=== PATIENT | male | born 1995 | race Caucasian/White ===

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

== ENCOUNTER 2018-09-03 11:09 | Emergency (ER) | payer OTHER ==
[~2018-09-03] VITALS: Ht 170.2 cm; Wt 111.1 kg
[~2018-09-03 11:09] MED LIST: HYDR-3165 PO; NAPR-683 PO
[2018-09-03 11:27] VITALS: BP 138/79
--- NOTE | 2018-09-03 12:05 | PHYS DOC ---
Past History Past Medical History: Anxiety, Depression, Hypertension, Other Past Surgical History: Other Smoking: Cigarettes Alcohol Use: None Drug Use: None Adult General Chief Complaint Chief Complaint: LACERATION/AVULSION HPI HPI 22-year-old male presents with laceration of the left thumb. The patient was w alking with a glass tripped and fell. The glass took a chunk out of his finger. He is unsure if it can be sutured. His tetanus is out of date. He denies any other injuries. Review of Systems Review of Systems Constitutional: Denies fever or chills [] Eyes: Denies change in visual acuity, redness, or eye pain [] HENT: Denies nasal congestion or sore throat [] Respiratory: Denies cough or shortness of breath [] Cardiovascular: No additional information not addressed in HPI [] GI: Denies abdominal pain, nausea, vomiting, bloody stools or diarrhea [] : Denies dysuria or hematuria [] Musculoskeletal: Denies back pain or joint pain [] Integument: Laceration[] Neurologic: Denies headache, focal weakness or sensory changes [] Endocrine: Denies polyuria or polydipsia [] All other systems were reviewed and found to be within normal limits, except as documented in this note. Current Medications Current Medications Current Medications Medications (Trade) Dose Ordered Sig/Mireille Start Time Stop Time Status Last Admin Dose Admin Diphtheria/ Tetanus/Acell Pertussis (Boostrix) 0.5 ml ONCE ONCE 09/03/18 12:10 09/03/18 12:11 Lidocaine HCl (Viscous Lidocaine) 15 ml 1X ONCE 09/03/18 12:00 09/03/18 12:01 UNV Allergies Allergies Allergies Coded Allergies Type Severity Reaction Last Updated Verified Sulfa (Sulfonamide Antibiotics) Allergy Unknown 09/03/18 Yes Physical Exam Physical Exam Constitutional: Well developed, well nourished, no acute distress, non-toxic appearance. [] HENT: Normocephalic, atraumatic, bilateral external ears normal, oropharynx moist, no oral exudates, nose normal. [] Eyes: PERRLA, EOMI, conjunctiva normal, no discharge. [] Neck: Normal range of motion, no tenderness, supple, no stridor. [] Cardiovascular:Heart rate regular rhythm, no murmur [] Lungs & Thorax: Bilateral breath sounds clear to auscultation [] Abdomen: Bowel sounds normal, soft, no tenderness, no masses, no pulsatile masses. [] Skin: One centimeter by 4 mm avulsion of skin on the left thumb, volar side. [] Back: No tenderness, no CVA tenderness. [] Extremities: No tenderness, no cyanosis, no clubbing, ROM intact, no edema. [] Neurologic: Alert and oriented X 3, normal motor function, normal sensory function, no focal deficits noted. [] Psychologic: Affect normal, judgement normal, mood normal. [] Current Patient Data Vital Signs Vital Signs Date Time Temp Pulse Resp B/P (MAP) Pulse Ox O2 Delivery O2 Flow Rate FiO2 09/03/18 11:27 98.2 106 20 97 Room Air EKG EKG [] Radiology/Procedures Radiology/Procedures [] Course & Med Decision Making Course & Med Decision Making Pertinent Labs and Imaging studies reviewed. (See chart for details) The patient has a of skin missing. It is not full-thickness. I do not believe sutures would benefit the patient. This can heal by secondary intention. I advised the patient to be careful and keep it clean and dry to avoid infection. He states verbal understanding. We will give him his tetanus shot in the ED. [] Dragon Disclaimer Dragon Disclaimer This electronic medical record was generated, in whole or in part, using a voice recognition dictation system. Departure Departure: Impression: Primary Impression: Avulsion of skin of finger Disposition: 01 HOME, SELF-CARE Condition: STABLE Referrals: CAMERON ADKINS (PCP) Patient Instructions: Finger Avulsion Problem Qualifiers Primary Impression: Avulsion of skin of finger Encounter type: initial encounter Qualified Codes: S61.209A - Unspecified open wound of unspecified finger without damage to nail, initial encounter PANCHO SPENCER DO Sep 03, 2018 12:05
[2018-09-03] MEDS ORDERED: LIDOCAINE 2% VISCOUS 15 ML SOLUTION. ONE (12:06)
[2018-09-03] MEDS ORDERED: DIPHTH,PERTUSS(ACELL),TET TOX 0.5 ML DISP.SYRIN. VAX IM ONE (12:10)
[2018-09-03] MEDS ORDERED: LIDOCAINE 2% VISCOUS 15 ML SOLUTION. SWSW ONE (12:30)
== END 2018-09-03 12:13 | disposition home or self-care (01) ==
LOC: ER 11:09
DX: S61.012A Laceration without foreign body of left thumb without damage to nail, initial encounter (principal); I10 Essential (primary) hypertension; F17.210 Nicotine dependence, cigarettes, uncomplicated; Z88.2 Allergy status to sulfonamides; W01.110A Fall on same level from slipping, tripping and stumbling with subsequent striking against sharp glass, initial encounter; Y93.01 Activity, walking, marching and hiking; Y92.89 Other specified places as the place of occurrence of the external cause; Y99.8 Other external cause status
CPT/HCPCS: 90471; 90715; 99283-25

== ENCOUNTER 2019-09-05 21:46 | Emergency (ER) | payer SELFPAY ==
[~2019-09-05] VITALS: Ht 170.2 cm; Wt 130.5 kg
[2019-09-05 23:06] LABS: BASO # 0.1 x10^3/uL (0.0-0.2); BASO % 1 % (0-3); EOS # 0.1 x10^3/uL (0.0-0.7); EOS % 1 % (0-3); HEMATOCRIT 48.7 % (39.0-53.0); HEMOGLOBIN 16.5 g/dL (13.0-17.5); LYMPH # 2.6 x10^3/uL (1.0-4.8); LYMPH % 26 % (24-48); MEAN CORPUSCULAR HEMOGLOBIN 31 pg (25-35); MEAN CORPUSCULAR HGB CONC 34 g/dL (31-37); MEAN CORPUSCULAR VOLUME 91 fL (79-100); MONO # 0.9 x10^3/uL (0.0-1.1); MONO % 9 % (0-9); NEUT # 6.2 x10^3uL (1.8-7.7); NEUT % 62 % (31-73); PLATELET COUNT 311 x10^3/uL (140-400); RED BLOOD COUNT 5.37 x10^6/uL (4.30-5.70); RED CELL DISTRIBUTION WIDTH 13.5 % (11.5-14.5)
[2019-09-05 23:18] LABS: CALCIUM 9.4 mg/dL (8.5-10.1); CREATININE 1.5 mg/dL (0.7-1.3); GFR 59.1; POTASSIUM 3.3 mmol/L (3.5-5.1)
[2019-09-05 23:19] LABS: BARBITURATES NEG (NEG); BENZODIAZEPINES POS (NEG); CANNABINOIDS POS (NEG); COCAINE NEG (NEG); METHADONE NEG (NEG); OPIATES NEG (NEG); PHENCYCLIDINE NEG (NEG)
[2019-09-05 23:21] LABS: AMPHETAMINE/METHAMPHETAMINE NEG (NEG)
[2019-09-05 23:21] LABS: SALIC < 2.8 mg/dL (2.8-20.0)
[2019-09-05 23:22] LABS: ACETAMIN < 2.0 mcg/mL (10-30); ETHANOL < 10 mg/dL (0-10)
[2019-09-05 23:24] LABS: ALBUMIN 4.8 g/dL (3.4-5.0); ALBUMIN/GLOBULIN RATIO 1.3 (1.0-1.7); MAGNESIUM 2.1 mg/dL (1.8-2.4); TOTAL BILIRUBIN 0.4 mg/dL (0.2-1.0); TOTAL PROTEIN 8.4 g/dL (6.4-8.2)
[2019-09-05 23:53] LABS: BILIRUBIN,URINE NEG (NEG); CLARITY,URINE CLEAR; COLOR,URINE YELLOW; GLUCOSE,URINE NEG (NEG); NITRITE,URINE NEG (NEG)
[2019-09-05 23:54] LABS: BACTERIA,URINE 0 /HPF (0-FEW); RBC,URINE 0 /HPF (0-2); WBC,URINE RARE /HPF (0-4)
[2019-09-06] MEDS ORDERED: POTASSIUM CHLORIDE 20 MEQ TABLET.ER. PO ONE
--- NOTE | 2019-09-06 00:29 | PHYS DOC ---
Past History Past Medical History: Anxiety, Bipolar, Depression, Hypertension, Schizophrenia, Other Additional Past Medical Histor: schizo affective disorder, bipolar type I, ADHD, PTSD, Past Surgical History: Other Additional Past Surgical Histo: ear tubes Smoking: Cigarettes, Less than 1pk/day Alcohol Use: None Drug Use: Marijuana General Adult EDM: Chief Complaint: PSYCH EVALUATION HPI: HPI: 23-year-old male presents with report of suicidal ideation that has been ongoing for the past 2 months. Patient is working through disability process. Reports increased life stressors. Reports today he became more depressed and "broke down" . Reports history of inpatient psychiatric admission at [facility] and the summer 2018. Patient denies plan. Reports use of marijuana. Denies alcohol abuse. Denies fever or chills. Denies trauma. Review of Systems: Review of Systems: Constitutional: Denies fever or chills Eyes: Denies redness or eye pain Respiratory: Denies cough or shortness of breath Cardiovascular: Denies chest pain or palpitations GI: Denies abdominal pain, nausea, or vomiting Integument: Denies rash or skin lesions Neurologic: Denies headache, focal weakness or sensory changes Complete systems were reviewed and found to be within normal limits, except as documented in this note. Current Medications: Current Meds: Current Medications Medications (Trade) Dose Ordered Sig/Mireille Start Time Stop Time Status Last Admin Dose Admin Potassium Chloride (Klor-Con) 40 meq 1X ONCE 09/06/19 00:00 09/06/19 00:01 UNV 09/06/19 00:00 40 MEQ Allergies: Allergies: Allergies Coded Allergies Type Severity Reaction Last Updated Verified Sulfa (Sulfonamide Antibiotics) Allergy Unknown 09/03/18 Yes Physical Exam: PE: Constitutional: Well developed, well nourished, no acute distress, non-toxic appearance HENT: Normocephalic, atraumatic Eyes: PERRL, EOMI, conjunctiva normal, no discharge Neck: Normal range of motion, supple Lungs & Thorax: No respiratory distress, equal chest rise and fall Abdomen: Soft, no tenderness Skin: Warm, dry, no erythema, no rash Extremities: No tenderness, ROM intact, no edema Neurologic: Alert and oriented X 3, normal motor function, normal sensory function, no focal deficits noted Psychologic: Affect flat, judgment abnormal, suicidal ideation without plan, denies homicidal ideation Current Patient Data: Labs: Laboratory Tests Test 09/05/19 22:22 09/05/19 22:32 Urine Collection Type Unknown Urine Color Yellow Urine Clarity Clear Urine pH 7.0 Urine Specific [place] 1.020 Urine Protein Neg (NEG-TRACE) Urine Glucose (UA) Neg mg/dL (NEG) Urine Ketones (Stick) Neg mg/dL (NEG) Urine Blood Neg (NEG) Urine Nitrite Neg (NEG) Urine Bilirubin Neg (NEG) Urine Urobilinogen Dipstick 1.0 mg/dL (0.2 mg/dL) Urine Leukocyte Esterase Neg (NEG) Urine RBC 0 /HPF (0-2) Urine WBC Rare /HPF (0-4) Urine Squamous Epithelial Cells None /LPF Urine Bacteria 0 /HPF (0-FEW) Urine Opiates Screen Neg (NEG) Urine Methadone Screen Neg (NEG) Urine Barbiturates Neg (NEG) Urine Phencyclidine Screen Neg (NEG) Urine Amphetamine/Methamphetamine Neg (NEG) Urine Benzodiazepines Screen Pos (NEG) Urine Cocaine Screen Neg (NEG) Urine Cannabinoids Screen Pos (NEG) Urine Ethyl Alcohol Neg (NEG) White Blood Count 10.0 x10^3/uL (4.0-11.0) Red Blood Count 5.37 x10^6/uL (4.30-5.70) Hemoglobin 16.5 g/dL (13.0-17.5) Hematocrit 48.7 % (39.0-53.0) Mean Corpuscular Volume 91 fL (79-100) Mean Corpuscular Hemoglobin 31 pg (25-35) Mean Corpuscular Hemoglobin Concent 34 g/dL (31-37) Red Cell Distribution Width 13.5 % (11.5-14.5) Platelet Count 311 x10^3/uL (140-400) Neutrophils (%) (Auto) 62 % (31-73) Lymphocytes (%) (Auto) 26 % (24-48) Monocytes (%) (Auto) 9 % (0-9) Eosinophils (%) (Auto) 1 % (0-3) Basophils (%) (Auto) 1 % (0-3) Neutrophils # (Auto) 6.2 x10^3uL (1.8-7.7) Lymphocytes # (Auto) 2.6 x10^3/uL (1.0-4.8) Monocytes # (Auto) 0.9 x10^3/uL (0.0-1.1) Eosinophils # (Auto) 0.1 x10^3/uL (0.0-0.7) Basophils # (Auto) 0.1 x10^3/uL (0.0-0.2) Sodium Level 142 mmol/L (136-145) Potassium Level 3.3 mmol/L (3.5-5.1) L Chloride Level 104 mmol/L (98-107) Carbon Dioxide Level 25 mmol/L (21-32) Anion Gap 13 (6-14) Blood Urea Nitrogen 12 mg/dL (8-26) Creatinine 1.5 mg/dL (0.7-1.3) H Estimated GFR (Cockcroft-Gault) 59.1 BUN/Creatinine Ratio 8 (6-20) Glucose Level 104 mg/dL (70-99) H Calcium Level 9.4 mg/dL (8.5-10.1) Magnesium Level 2.1 mg/dL (1.8-2.4) Total Bilirubin 0.4 mg/dL (0.2-1.0) Aspartate Amino Transferase (AST) 21 U/L (15-37) Alanine Aminotransferase (ALT) 36 U/L (16-63) Alkaline Phosphatase 85 U/L (46-116) Total Protein 8.4 g/dL (6.4-8.2) H Albumin 4.8 g/dL (3.4-5.0) Albumin/Globulin Ratio 1.3 (1.0-1.7) Salicylates Level < 2.8 mg/dL (2.8-20.0) L Salicylate Last Dose Date Unknown Salicylate Last Dose Time Unknown Acetaminophen Level < 2.0 mcg/mL (10-30) L Acetaminophen Last Dose Date Unknown Acetaminophen Last Dose Time Unknown Ethyl Alcohol Level < 10 mg/dL (0-10) Vital Signs: Vital Signs Date Time Temp Pulse Resp B/P (MAP) Pulse Ox O2 Delivery O2 Flow Rate FiO2 09/05/19 21:57 98.0 146 18 161/89 (113) 97 Room Air EKG: EKG: [] Radiology/Procedures: Radiology/Procedures: [] Course & Med Decision Making: Course & Med Decision Making Pertinent Lab studies reviewed. (See chart for details) Patient presents with suicidal ideation x2 months without plan. Patient with significant psychiatric history. Labs obtained and posted to chart. Hypokalemia addressed. Patient medically cleared for tele-psych evaluation. Tele-psych evaluation performed with recommendation that patient is safe for discharge home with close follow-up with [facility]. Safety plan signed by patient. Patient stable for discharge with outpatient follow-up with PCP/mental health. Discussed findings and plan with patient, who acknowledges understanding and ag reement. Leroy Disclaimer: Leroy Disclaimer: This electronic medical record was generated, in whole or in part, using a voice recognition dictation system. Departure Departure: Impression: Primary Impression: Suicidal ideation Disposition: HOME/RESIDENCE PRIOR TO ADM Condition: STABLE Referrals: PCP,MARNI (PCP) Patient Instructions: Suicidal Feelings, How to Help Yourself Justification of Admission: Justification of Admission: Justification of Admission Dx: N/A FREDY WILDER DO Sep 06, 2019 00:29
[2019-09-06 03:56] VITALS: BP 138/79
== END 2019-09-06 04:20 | disposition home or self-care (01) ==
LOC: ER 21:46
DX: R45.851 Suicidal ideations (principal); F41.9 Anxiety disorder, unspecified; F31.9 Bipolar disorder, unspecified; I10 Essential (primary) hypertension; F20.9 Schizophrenia, unspecified; F90.9 Attention-deficit hyperactivity disorder, unspecified type; F17.210 Nicotine dependence, cigarettes, uncomplicated; Z88.2 Allergy status to sulfonamides
CPT/HCPCS: 36415; 80053; 80307; 80329; 81001; 83735; 85025; 99285; G0480

== ENCOUNTER 2020-01-11 11:36 | Emergency (ER) | payer SELFPAY ==
[~2020-01-11] VITALS: Ht 167.6 cm; Wt 130.5 kg
[2020-01-11] MEDS: IV NORMAL SALINE 1,000ML 1,000 ML IV ONE (12:30)
[2020-01-11] MEDS: ONDANSETRON PF 4 MG/2 ML VIAL. IVP ONE (12:30)
[2020-01-11] MEDS: MORPHINE SULFATE 4 MG/ML DISP.SYRIN. IV ONE (12:30)
[2020-01-11 12:35] VITALS: BP 136/81
--- NOTE | 2020-01-11 12:39 | PHYS DOC ---
Past History Past Medical History: Anxiety, Bipolar, Depression, Hypertension, Schizophrenia, Other Additional Past Medical Histor: schizo affective disorder, bipolar type I, ADHD, PTSD, (RODDY JUNIOR APRN) Past Surgical History: Other Additional Past Surgical Histo: ear tubes (RODDY JUNIOR APRN) Smoking: Cigarettes, Less than 1pk/day Alcohol Use: None Drug Use: Marijuana (RODDY JUNIOR APRN) General Adult EDM: Chief Complaint: GROIN PAIN HPI: HPI: Patient is a 24-year-old male who presents to the emergency department with complaints of pain and bulging in his left groin for the last 5 days. Patient states that the pain has been so severe and constant for the last 2 days that he has been unable to sleep. Patient reports that the pain increases with defecation and urination, it is relieved by nothing. He denies any difficulty voiding, hematuria, dysuria, irregular penile discharge, abdominal pain, nausea, vomiting, diarrhea, back pain, fever, cough, shortness of breath, or rash. The patient denies any testicular pain. He states that the pain also increases with palpation, he denies any radiation of the pain. He currently rates the pain a 10 out of 10 on the pain scale. (RODDY JUNIOR APRN) Review of Systems: Review of Systems: Complete ROS is negative unless otherwise noted in HPI. (RODDY JUNIOR APRN) Current Medications: Current Meds: Current Medications Medications (Trade) Dose Ordered Sig/Mireille Start Time Stop Time Status Last Admin Dose Admin Morphine Sulfate (Morphine 4mg Syringe) 4 mg 1X ONCE 01/11/20 12:30 01/11/20 12:31 DC Ondansetron HCl (Zofran) 4 mg 1X ONCE 01/11/20 12:30 01/11/20 12:31 DC Sodium Chloride 1,000 ml @ 1,000 mls/hr 1X ONCE 01/11/20 12:30 01/11/20 13:29 (RODDY JUNIOR APRN) Allergies: Allergies: Allergies Coded Allergies Type Severity Reaction Last Updated Verified Sulfa (Sulfonamide Antibiotics) Allergy Unknown 09/03/18 Yes (RODDY JUNIOR APRN) Physical Exam: PE: See Above Constitutional: Well developed, well nourished, no acute distress, non-toxic appearance, morbidly obese. [] HENT: Normocephalic, atraumatic, bilateral external ears normal, nose normal. [] Eyes: PERRLA, EOMI, conjunctiva normal, no discharge. [] Neck: Normal range of motion, no stridor. [] Cardiovascular:Heart rate regular rhythm Lungs & Thorax: Respirations even and unlabored, no retractions, no respiratory distress Abdomen: soft, no tenderness Male : Tenderness to palpation of the left inguinal canal unable to appreciate any palpable bulge or hernia, no urethral discharge, circumcised, normal testicular exam Skin: Warm, dry, no erythema, no rash. [] Extremities: No cyanosis, ROM intact, no edema. [] Neurologic: Alert and oriented X 3, no focal deficits noted. [] Psychologic: Affect normal, judgement normal, mood normal. [] (RODDY JUNIOR APRN) EKG: EKG: [] (RODDY JUNIOR APRN) Radiology/Procedures: Radiology/Procedures: PROCEDURE: CT ABD PELV W/ IV CONTRST ONLY CT STUDY OF THE ABDOMEN AND PELVIS WITH CONTRAST Clinical indications: Left groin pain for 5 days. Pain increases with bowel movement and urination. TECHNIQUE: After IV infusion of 75 cc Omnipaque 300, helical CT scanning of the abdomen and pelvis was performed. No GI contrast was administered. This may decrease the sensitivity to detect GI tract pathology. PQRS compliance Statement One or more of the following individualized dose reduction techniques were utilized for this study: 1. Automated exposure control 2. Adjustment of the mA and/or kV according to patient size 3. Use of iterative reconstruction technique COMPARISON: None available. FINDINGS: Geographic fatty infiltration of the liver is seen involving the right lobe of the liver. No hepatic mass is seen. The spleen and pancreas and gallbladder are normal. No extrahepatic biliary ductal dilatation is seen. No adrenal mass is evident. Both kidneys are normal without hydronephrosis or hydroureter. No urinary tract stone is evident. Urinary bladder wall is smooth. The prostate gland and seminal vesicles are unremarkable. No focal aneurysmal dilatation of the abdominal aorta is seen. No enlarged abdominal or pelvic lymphadenopathy is seen. The appendix is normal. Terminal ileum is unremarkable. No obstructive bowel pattern is evident. No bowel wall thickening is seen. No free intraperitoneal air or free fluid or mesenteric edema is seen. No lung base consolidation is evident. No lytic process is seen. No anterior abdominal wall hernia or inguinal canal hernia is seen. IMPRESSION: No acute abnormality. Electronically signed by: Wesley Franks MD (01/11/2020 1:18 PM) [id number] [] (RODDY JUNIOR APRN) Heart Score: Risk Factors: Risk Factors: DM, Current or recent (<one month) smoker, HTN, HLP, family history of CAD, obesity. Risk Scores: Score 0 - 3: 2.5% MACE over next 6 weeks - Discharge Home Score 4 - 6: 20.3% MACE over next 6 weeks - Admit for Clinical Observation Score 7 - 10: 72.7% MACE over next 6 weeks - Early Invasive Strategies (RODYD JUNIOR APRN) Course & Med Decision Making: Course & Med Decision Making Pertinent Labs and Imaging studies reviewed. (See chart for details) 24-year-old male presents emergency department complaints of left flank pain that started 5 days ago constant for the last 2 days. Work-up included a CBC, CMP, UA, CT abdomen pelvis with IV contrast. Patient was given a liter normal saline, 4 mg of morphine, and 4 mg of Zofran. He reported relief of the pain after these medications. CBC, CMP, lactic acid, UA were all unremarkable. CT abdomen pelvis did not reveal any acute findings, there was no palpable hernia on physical exam. No evidence of incarcerated hernia on the CT scan. The patient's pain is likely due to a groin strain. Prescriptions were written for naproxen and Robaxin. I encouraged patient follow-up with a primary care doctor for further evaluation and treatment, return to the ER if symptoms worsen or fever develops. Patient verbalized an understanding of home care, medications, follow-up, and return to ED instructions and was in agreement with the plan of care. [] (RODDY JUNIOR APRN) Dragon Disclaimer: Dragon Disclaimer: This electronic medical record was generated, in whole or in part, using a voice recognition dictation system. (RODDY JUNIOR APRN) Departure Departure: Impression: Primary Impression: Left groin pain Disposition: 01 DC HOME SELF CARE/HOMELESS Condition: STABLE Referrals: PCP,NO (PCP) Patient Instructions: Groin Strain Additional Instructions: Fill the prescriptions and use them as directed. Activity as tolerated. Try applying ice or heat to the sore area as needed for comfort. Follow-up with your primary care doctor if symptoms persist, if you do not have a primary care doctor please use the list that we have provided. Return to the ER if your symptoms worsen or fever develops. Scripts Methocarbamol (ROBAXIN-750) 750 Mg Tablet 1 TAB PO TID for pain for 10 Days, #30 TAB 0 Refills Prov: RODDY JUNIOR APRN 01/11/20 Naproxen (NAPROXEN) 500 Mg Tablet 1 TAB PO BID for pain for 10 Days, #20 TAB 0 Refills Prov: RODDY JUNIOR APRN 01/11/20 Attending Signature Attending Signature I have reviewed the PA/ROD PULLER's note and plan of care. I was available for consultation as needed during the patient's visit in the emergency department. I agree with the clinical impression, plan, and disposition. (FREDY WILDER DO) RODDY JUNIOR APRN Jan 11, 2020 12:39 FREDY WILDER DO Jan 12, 2020 00:17
[2020-01-11] MEDS ORDERED: CONTRAST GIVEN. MC PRN (12:45)
[2020-01-11] MEDS: IOHEXOL 300 MG/ML 75 ML VIAL. IV ONE (12:47)
[2020-01-11 13:02] LABS: BACTERIA,URINE 0 /HPF (0-FEW); BILIRUBIN,URINE NEG (NEG); CLARITY,URINE CLEAR; COLOR,URINE YELLOW; GLUCOSE,URINE NEG (NEG); NITRITE,URINE NEG (NEG); RBC,URINE 0 /HPF (0-2); UROBILINOGEN,URINE 0.2 mg/dL (0.2 mg/dL); WBC,URINE 0 /HPF (0-4)
[2020-01-11 13:03] LABS: BASO # 0.1 x10^3/uL (0.0-0.2); BASO % 1 % (0-3); EOS # 0.2 x10^3/uL (0.0-0.7); EOS % 2 % (0-3); HEMOGLOBIN 16.6 g/dL (13.0-17.5); LYMPH # 1.8 x10^3/uL (1.0-4.8); LYMPH % 19 % (24-48); MEAN CORPUSCULAR HEMOGLOBIN 31 pg (25-35); MEAN CORPUSCULAR HGB CONC 33 g/dL (31-37); MEAN CORPUSCULAR VOLUME 92 fL (79-100); MONO # 0.7 x10^3/uL (0.0-1.1); MONO % 7 % (0-9); NEUT % 71 % (31-73); PLATELET COUNT 290 x10^3/uL (140-400); RED BLOOD COUNT 5.42 x10^6/uL (4.30-5.70); RED CELL DISTRIBUTION WIDTH 13.9 % (11.5-14.5); WHITE BLOOD COUNT 9.8 x10^3/uL (4.0-11.0)
[2020-01-11 13:11] LABS: CALCIUM 9.7 mg/dL (8.5-10.1); GFR 93.4; POTASSIUM 4.1 mmol/L (3.5-5.1)
[2020-01-11 13:17] LABS: ALBUMIN 4.4 g/dL (3.4-5.0); ALBUMIN/GLOBULIN RATIO 1.2 (1.0-1.7); TOTAL BILIRUBIN 0.4 mg/dL (0.2-1.0); TOTAL PROTEIN 8.2 g/dL (6.4-8.2)
--- NOTE | 2020-01-11 13:21 | RAD ---
CT STUDY OF THE ABDOMEN AND PELVIS WITH CONTRAST Clinical indications: Left groin pain for 5 days. Pain increases with bowel movement and urination. TECHNIQUE: After IV infusion of 75 cc Omnipaque 300, helical CT scanning of the abdomen and pelvis was performed. No GI contrast was administered. This may decrease the sensitivity to detect GI tract pathology. PQRS compliance Statement One or more of the following individualized dose reduction techniques were utilized for this study: 1. Automated exposure control 2. Adjustment of the mA and/or kV according to patient size 3. Use of iterative reconstruction technique COMPARISON: None available. FINDINGS: Geographic fatty infiltration of the liver is seen involving the right lobe of the liver. No hepatic mass is seen. The spleen and pancreas and gallbladder are normal. No extrahepatic biliary ductal dilatation is seen. No adrenal mass is evident. Both kidneys are normal without hydronephrosis or hydroureter. No urinary tract stone is evident. Urinary bladder wall is smooth. The prostate gland and seminal vesicles are unremarkable. No focal aneurysmal dilatation of the abdominal aorta is seen. No enlarged abdominal or pelvic lymphadenopathy is seen. The appendix is normal. Terminal ileum is unremarkable. No obstructive bowel pattern is evident. No bowel wall thickening is seen. No free intraperitoneal air or free fluid or mesenteric edema is seen. No lung base consolidation is evident. No lytic process is seen. No anterior abdominal wall hernia or inguinal canal hernia is seen. IMPRESSION: No acute abnormality. Electronically signed by: Wesley Franks MD (01/11/2020 1:18 PM) [id number]
[2020-01-11] MEDS ORDERED: METH-38 PO (13:25)
[2020-01-11] MEDS ORDERED: NAPR-514 PO (13:25)
== END 2020-01-11 13:36 | disposition home or self-care (01) ==
LOC: ER 11:36
DX: R10.32 Left lower quadrant pain (principal); R50.9 Fever, unspecified; F41.9 Anxiety disorder, unspecified; F32.9 Major depressive disorder, single episode, unspecified; I10 Essential (primary) hypertension; F20.9 Schizophrenia, unspecified; F90.9 Attention-deficit hyperactivity disorder, unspecified type; F17.210 Nicotine dependence, cigarettes, uncomplicated; F12.90 Cannabis use, unspecified, uncomplicated; Z98.890 Other specified postprocedural states; Z88.2 Allergy status to sulfonamides
CPT/HCPCS: 36415; 74177; 80053; 81001; 83605; 85025; 96361; 96374; 96375; 99285; J2270; J2405; J7030; Q9967

== ENCOUNTER 2021-06-07 16:09 | Emergency (ER) | payer SELFPAY ==
[~2021-06-07 16:09] MED LIST changes: +METH-38 PO; +NAPR-514 PO
[2021-06-07] MEDS ORDERED: HALOPERIDOL LACT 5 MG/ML VIAL. IM ONE (19:15)
[2021-06-07] MEDS ORDERED: MIDAZOLAM HCL PF 5 MG/5 ML VIAL. IM ONE (19:15)
[2021-06-07] MEDS ORDERED: NICOTINE 21MG PATCH. TD ONE ×2 (22:57→23:30)
[2021-06-08 02:01] LABS: ALBUMIN 4.1 g/dL (3.4-5.0); CALCIUM 9.4 mg/dL (8.5-10.1); DIRECT BILIRUBIN 0.1 mg/dL (0.0-0.2); GFR 92.6; POTASSIUM 4.4 mmol/L (3.5-5.1); TOTAL BILIRUBIN 0.2 mg/dL (0.2-1.0); TOTAL PROTEIN 7.1 g/dL (6.4-8.2)
[2021-06-08 02:02] LABS: ACETAMIN < 2.0 mcg/mL (10-30); ETHANOL < 10 mg/dL (0-10); SALIC < 2.8 mg/dL (2.8-20.0)
[2021-06-08 02:03] LABS: AMPHETAMINE/METHAMPHETAMINE NEG (NEG); BARBITURATES NEG (NEG); BENZODIAZEPINES POS (NEG); COCAINE NEG (NEG); METHADONE NEG (NEG)
[2021-06-08 02:04] LABS: CANNABINOIDS POS (NEG); OPIATES NEG (NEG); PHENCYCLIDINE NEG (NEG); RED BLOOD COUNT 5.14 x10^6/uL (4.30-5.70)
[2021-06-08 02:05] LABS: BASO # 0.2 x10^3/uL (0.0-0.2); BASO % 1 % (0-3); EOS # 0.1 x10^3/uL (0.0-0.7); EOS % 1 % (0-3); HEMATOCRIT 47.5 % (39.0-53.0); HEMOGLOBIN 15.5 g/dL (13.0-17.5); LYMPH % 14 % (24-48); MEAN CORPUSCULAR HEMOGLOBIN 30 pg (25-35); MEAN CORPUSCULAR HGB CONC 33 g/dL (31-37); MEAN CORPUSCULAR VOLUME 93 fL (79-100); MONO # 0.8 x10^3/uL (0.0-1.1); MONO % 6 % (0-9); NEUT # 10.8 x10^3uL (1.8-7.7); NEUT % 78 % (31-73); PLATELET COUNT 378 x10^3/uL (140-400); RED CELL DISTRIBUTION WIDTH 14.8 % (11.5-14.5)
[2021-06-08 02:08] LABS: BACTERIA,URINE 0 /HPF (0-FEW); CLARITY,URINE CLEAR; COLOR,URINE YELLOW; GLUCOSE,URINE NEG (NEG); NITRITE,URINE NEG (NEG); RBC,URINE 0 /HPF (0-2); UROBILINOGEN,URINE 0.2 mg/dL (0.2 mg/dL); WBC,URINE 0 /HPF (0-4)
[2021-06-08 02:10] LABS: % LYMPHS 13 % (24-48); % MONOS 8 % (0-10); % SEGS 79 % (35-66)
[2021-06-08 02:11] LABS: PLT ESTIMATE ADEQUATE (ADEQUATE)
[2021-06-08 03:54] VITALS: BP 138/89
== END 2021-06-08 10:15 ==
LOC: ER 16:09
DX: T71.162A Asphyxiation due to hanging, intentional self-harm, initial encounter (principal); R45.851 Suicidal ideations; F43.10 Post-traumatic stress disorder, unspecified; F20.9 Schizophrenia, unspecified; Z20.822 Contact with and (suspected) exposure to COVID-19; Z88.2 Allergy status to sulfonamides
CPT/HCPCS: 80048; 80076; 80307; 80329; 81001; 84443; 85007; 85025; 87426; 99285; G0480